=== PATIENT | male | born 1955 | race Caucasian/White ===

== ENCOUNTER → 2021-04-17 | Outpatient (CLI) | payer BC ==
[~2021-04-17] MED LIST: ASA81BEC PO; DAILY VALUE1 EAC1 PO; FISH OIL 1,0001 EAC9 PO; INDOMETHACIN 2525 MG PO; LEXAPRO 10 MG T10 M2 PO; RED YEAST RICE600 M1 PO; VITAMIN C500 M1 PO; WELLBUTRIN SR150 MG PO
[2021-04-17 10:19] LABS: HEMATOCRIT 44.6 % (42.0-52.0); HEMOGLOBIN 14.7 gm/dL (14.0-18.0); MCH 30.5 pg (26.0-34.0); MCHC 32.9 g/dL (28.0-37.0); MCV 92.5 fL (80.0-100.0); RBC 4.82 mil/uL (4.50-6.00); WBC 4.8 thou/uL (4.0-11.0)
[2021-04-17 10:28] LABS: URINE BILIRUBIN NEGATIVE (Negative); URINE BLOOD NEGATIVE (Negative); URINE CLARITY CLEAR; URINE COLOR YELLOW; URINE GLUCOSE-RANDOM* NEGATIVE (Negative); URINE KETONES NEGATIVE (Negative); URINE LEUKOCYTES-REFLEX NEGATIVE (Negative); URINE NITRITE-REFLEX NEGATIVE (Negative); URINE PROTEIN (DIPSTICK) NEGATIVE (Negative); URINE UROBILINOGEN 0.2 E.U./dl (0.2-1.0)
[2021-04-17 10:35] LABS: INR 1.06; PROTIME 11.5 Seconds (10.5-12.1)
[2021-04-17 10:41] LABS: CALCIUM 8.9 mg/dL (8.5-10.1); POTASSIUM 4.6 mmol/L (3.5-5.1)
--- NOTE | 2021-04-17 11:24 | EKG ---
[place] [address] [facility] [place] [address] ELECTROCARDIOGRAM REPORT Name: SUAMN SOTELO [facility] [id number] Admission: 04/17/21 Attend Phys: Manish Machado MD Discharge: Date of : 53 Report #: [id number] [facility] Test Date: 2021-04-17 Test Time: 10:14:55 Pat Name: SUMAN SOTELO Department: Room: Gender: District Manager Postal Service: [id number] : 1955 Requested By: Manish Machado Order Number: [id number] : Sp Amezcua Measurements Intervals [place] Rate: 59 P: 72 WI: 199 QRS: 16 QRSD: 96 T: 30 QT: 433 QTc: 429 Interpretive Statements Sinus rhythm Atrial premature complex Abnormal R-wave progression, early transition No previous ECG available for comparison Electronically Signed On 04-17-2021 11:24:38 TYPE DISK QUALITY CONTROL SUPERVISOR by Sp Amezcua [email or web address] <ELECTRONICALLY SIGNED> By: Sp Amezcua MD, [facility] 04/17/21 [id number] [id number] Sp Amezcua MD, FACC /EPI
== END ==
LOC: PAC 09:15
PROVIDERS: ATTEND Orthopaedic Surgery
DX: M17.11 Unilateral primary osteoarthritis, right knee (principal)

== ENCOUNTER 2021-05-04 10:06 | Observation (INO) | payer BC ==
[~2021-05-04] VITALS: Ht 182.9 cm; Wt 97.5 kg
--- NOTE | ~2021-05-04 | O ---
[facility] [address] OPERATIVE REPORT Name: SUMAN SOTELO JR Room #: 434-P [facility]..#: [id number] Admission: 05/04/21 Attend Phys: Manish Machado MD Discharge: Date of : 53 Report #: [id number] THIS REPORT FOR: cc: TRANG RAO Physician not on staff Manish Machado MD ~ DATE OF SERVICE: 05/04/2021 PREOPERATIVE DIAGNOSIS: Right knee osteoarthritis. POSTOPERATIVE DIAGNOSIS: Right knee osteoarthritis. PROCEDURE: Right total knee arthroplasty using CORI robotic assistance. SURGEON: Manish Machado MD PATIENT ACCESS ASSOCIATE: Liya Ruffin PA-C. INDICATION FOR PATIENT ACCESS ASSOCIATE: Throughout the case, extensive retraction and manipulation of the knee was required. This is supported by my architectural administrative assistant. ANESTHESIA: LMA with adductor canal block. IMPLANTS: A [employer] size 7 Journey II BCS Oxinium femur, size 6 tibia, size 10 polyethylene, size 35 patella. TOURNIQUET TIME: 57 minutes. ESTIMATED BLOOD LOSS: 25 mL. COMPLICATIONS: None. SPECIMENS: None. CONDITION UPON LEAVING THE OR: Stable. INDICATIONS FOR PROCEDURE: The patient is a 66-year-old gentleman with severe right knee osteoarthritis. She had failed conservative measures for this and after discussion with him, he elected for right total knee arthroplasty. DESCRIPTION OF PROCEDURE: Risks, benefits, alternatives, complications were discussed with the patient including but not limited to risk of anesthesia, risk of damage to nerves, arteries, blood vessels, risk for infection, bleeding, risk for continued knee pain, need for reoperation. Informed consent was obtained from the patient. The right knee was appropriately marked in the preoperative holding area. IV Ancef was given for preoperative antibiotics. She was brought [address] [address] OPERATIVE REPORT Name: DEEPAKSUMAN E Room #: 434-P [facility].Nash.#: [id number] Admission: 05/04/21 Attend Phys: Manish Machado MD Discharge: Date of : 53 Report #: [id number] to the operating room and placed in the supine position on the operating room table. LMA anesthesia was induced without complication. Tourniquet was placed around the thigh. Right lower extremity was prepped and draped in normal sterile fashion. Timeout was performed properly identifying the patient and procedure as well as instrumentation and implants. All in the operating room in agreement. Right lower extremity was exsanguinated, tourniquet was inflated. Tourniquet time was 57 minutes. Standard midline approach to the knee was made with 10 blade through the skin. Dissection was taken down sharply to the fascia. Deep flaps were developed medially and laterally. Fresh 10 blade was used to make a medial parapatellar arthrotomy and the knee was inspected. There were severe tricompartment osteoarthritis. ACL and PCL were removed sharply. Reference pins were placed in the femur and the tibia. The knee was then digitally mapped using the CORI robotic system. Intraoperative plan was made. We sized the size 7 femur, the size 6 tibia and a 10 spacer. After acceptance of the intraoperative plan, the distal femoral cut was made with Navio bur. Distal femoral cutting block was pinned in place and chamfer cuts were made. Attention was turned to the tibia. Remainder of the menisci removed with Bovie cautery. Tibial resection guide was pinned in place using Navio for placement. Tibial resection was made. Flexion and extension gaps were checked and found to have good balance in flexion and extension both medially and laterally. Tibia sized, found to be a size 6. A size 6 tibial trial was placed, pinned and punched. Size 7 femoral trial was placed and box cut was made. This was then trialed with a size 10 polyethylene. The size 10 polyethylene demonstrated 1-2 mm of laxity medially and laterally throughout range of motion of the knee. A 9 mm of bone was resected from the posterior surface of the patella and a size 35 patellar trial button was placed. Knee was taken through range of motion, found to be stable, found to have good patellar tracking. Trial components were removed. Bone ends were thoroughly irrigated with normal saline. A final size 6 tibia, size 7 Journey II BCS Oxinium femur and a size 35 patella were cemented in place using standard cementation techniques. While the cement cured, a periarticular injection consisting of morphine, ropivacaine, epinephrine, Toradol was placed around the knee joint capsule. After the cement cured, tourniquet was deflated. Hemostasis was obtained with Bovie cautery. Final size 10 polyethylene was placed. A gram of vancomycin was placed deep in the joint. The fascia was closed with 0 Vicryl. Skin was closed with 2-0 Vicryl, 3-0 Monocryl. Dermabond and a YONATHAN dressing was applied. The patient tolerated this procedure well and went to the recovery room under the care of anesthesia postoperatively. By: [id number] Manish Machado MD /nt
[2021-05-04 11:55] VITALS: BP 163/87
[2021-05-04 17:59] VITALS: BP 146/83
--- NOTE | 2021-05-04 18:40 | NUR ---
Patient arrived to unit from PACU at approx 1745. Patient is A&Ox4 and was able to answer all questions w no issues. CORBIN hose, YONATHAN dressing, & SCDs in place. Polar pack in place w no issues. Patient voices pain at 3/10 and did not want tylenol. Urinal at bedside. Fluids infusing on R hand w no issues. Denies needs at this time. Endorsed to hot car charger
[2021-05-04 19:12] VITALS: BP 110/76
--- NOTE | 2021-05-05 04:00 | NUR ---
pt with gordon drsg and polar ld to right knee. using urinal. Room air, CPAP at noc.
--- NOTE | 2021-05-05 08:52 | NUR ---
ASSUMED PT CARE THIS AM. PT IS ALERT & ORIENTED X4. PT HAS IV SITE ON R HAND RUNNING D5 1/2 NS @100ML/HR. PT HAS POLAR PACK, YONATHAN DRESSING, BILATERAL CORBIN HOSES KNEE HIGH, SCD. PT USES CPAP AT NIGHT AND RA DURING DAY. GIVEN SCHEDULED AND PAIN MEDICATIONS THIS AM WITHOUT DIFFICULTIES. AWAITING FOR PHYSICAL THERAPY THIS AM. PT IS ON THE BED EATING BREAKFAST, BED ON THE LOWEST POSITION, SIDE RAILS UP, CALL LIGHT WITHIN REACH. WILL CONTINUE TO MONITOR PT. FOLLOW POC.
[2021-05-05 08:54] VITALS: BP 121/76
[2021-05-05 10:47] VITALS: BP 121/76
== END 2021-05-05 11:38 | disposition home or self-care (01) ==
LOC: OR → 4S 17:24 → OR 17:25 → 4S 17:26 → OR 17:26 → 4S 05-05 11:38
PROVIDERS: ADMIT Orthopaedic Surgery; ATTEND Orthopaedic Surgery
DX: M17.11 Unilateral primary osteoarthritis, right knee (principal); Z20.822 Contact with and (suspected) exposure to COVID-19; Z79.899 Other long term (current) drug therapy
CPT/HCPCS: 10102; 50010; 50101; 50415; 50954; 51130; 51225; 53000; 53078; 53365; 54118; 56527; 56528; 57095; 57103; 57110; 57127; 57180; 59024; 59140; 59141; 62110; 62900; 64042; 70005